=== PATIENT | female | born 1950 | race Caucasian/White ===

== ENCOUNTER 2023-12-30 13:07 | Outpatient (CLI) | payer MEDICARE, BC, SELFPAY ==
--- NOTE | 2023-12-30 13:30 | CRLHL7_ITS ---
For Patients: As a result of the Century Cures Act, medical imaging exams and procedure reports are released immediately into your electronic medical record. You may view this report before your referring provider. If you have questions, please contact your health care provider. DXA BONE MINERAL DENSITY STUDY Reason for exam: Screening. Current height (in): 62.5. Weight (lbs): 171. Menopause age: 51. Ethnicity: White. 1. Have you had a previous hip or vertebral fracture? No. 2. Have you had any fractures during your adult life which did not result from significant trauma (e.g., auto accident)? No. 3. Did either of your parents have a hip fracture? No. 4. Do you smoke? No. 5. Have you ever taken Glucocorticoids? No. 6. Do you have rheumatoid arthritis? No. 7. Do you have secondary osteoporosis? No. 8. Do you drink 3 or more alcoholic drinks per day? No. 9. Are you being treated for osteoporosis? No. 10. Have you ever taken any of the following medications: Actonel, Evista, Fosamax, Miacalcin, Reclast, Boniva, Forteo, HRT (i.e., estrogen/hormone therapy), Protelos, Prolia, Vitamin D, Calcium, other ??? please specify. ANSWER: Yes, vitamin D. 11. Do you have any of the following medical conditions: Anorexia or bulimia, asthma or emphysema, end stage renal disease, hyperparathyroidism, any seizure disorders, cancer, inflammatory bowel diseases, hysterectomy, other ??? please specify. ANSWER: No. 12. What was your maximum height (inches)? 63. 13. Do you perform weight bearing exercise regularly? No. 14. Do you regularly consume dairy products? Yes. 15. Do you drink caffeinated beverages? Yes. 16. At what age did your period start? 11. 17. Are you premenopausal? No. 18. How many full-term pregnancies have you had? 3. 19. Have you ever missed your period for more than 6 months in a row (not including or menopause)? No. TECHNIQUE: Bone mineral density study was performed using the [facility]. FINDINGS: The results of the study expressed as bone mineral density (BMD) are as follows: Lumbar spine L2 to L4: BMD: 1.036 g/cm2. T-score: -0.4. Z-score: 2.1 Neck Left: BMD: 0.683 g/cm2. T-score: -1.5. Z-score: 0.6 Right: BMD: 0.640 g/cm2. T-score: -1.9. Z-score: 0.2 Total Left: BMD: 0.768 g/cm2. T-score: -1.4. Z-score: 0.4 Right: BMD: 0.700 g/cm2. T-score: -2.0. Z-score: -0.2 IMPRESSION: Osteopenia. *Comparison exams done prior to 10/2019 were performed on different unit, [facility]. FRAX 10-year Fracture Risk Major Osteoporotic Fracture: 12% Hip Fracture: 2.9% Reported Risk Factors: [place] () Neck BMD=0.640, BMI=30.8.30.8. Benson Bourgeois M.D. Diagnostic Radiologist [email or web address] ALFONSO/[email or web address] [email or web address]/Dictated by: Benson Bourgeois MD @ 12/31/2023 12:52:00 PM (Electronically Signed)
== END 2023-12-30 13:08 | disposition home or self-care (01) ==
LOC: RAD 13:07
PROVIDERS: Visit Provider Family Medicine
DX: Z13.820 Encounter for screening for osteoporosis (principal); M81.0 Age-related osteoporosis without current pathological fracture; M85.89 Other specified disorders of bone density and structure, multiple sites
CPT/HCPCS: 77080